=== PATIENT | male | born 1950 | race Caucasian/White ===

== ENCOUNTER 2016-12-27 13:39 | Emergency (ER) | payer MEDICARE, OTHER ==
[2016-12-27] MEDS ORDERED: LORazepam 2 MG/ML INJ ONE ×2 (13:53→14:42)
[2016-12-27 13:56] LABS: BASOPHIL# 0.1 X 10^3uL (0.0-0.1); BASOPHILS 0.6 % (0.0-2.0); EOSINOPHILS 7.5 % (0.0-6.0); EOSINOPHILS# 1.1 X 10^3uL (0.0-0.4); HEMOGLOBIN 17.8 g/dL (14.0-18.0); LYMPHOCYTES 20.4 % (20.0-40.0); LYMPHOCYTES# 2.9 X 10^3uL (0.8-3.8); MEAN CELL VOLUME 88.7 fL (84.0-102.0); MEAN CORPUS. HGB CONCENTRATION 34.2 g/dL (32.0-36.0); MEAN CORPUSCULAR HEMOGLOBIN 30.3 pg (29.0-35.0); MEAN PLATELET VOLUME 8.5 fL (7.4-10.4); MONOCYTES 14.5 % (2.0-10.0); MONOCYTES# 2.1 X 10^3uL (0.2-1.0); PLATELET COUNT 396 X 10^3uL (130-440); RED BLOOD COUNT 5.86 X 10^6uL (4.20-6.10); RED CELL DISTRIBUTION WIDTH 13.3 % (11.5-14.5); WHITE BLOOD COUNT 14.2 X 10^3uL (3.9-10.7)
[2016-12-27] MEDS ORDERED: FOSPHENYTOIN SODIUM 500 MG/10 ML VIAL ONE (14:02)
[2016-12-27] MEDS ORDERED: NORMAL SALINE 100 ML IV ONE (14:05)
[2016-12-27 14:07] LABS: BLOOD UREA NITROGEN 19 mg/dL (9-20); CALCIUM 10.7 mg/dL (8.4-10.2); CHLORIDE 106 mmol/L (98-107); CREATININE 1.7 mg/dL (0.7-1.3); EST GLOMERULAR FILTRATION RATE 43 mL/min; ETHYL ALCOHOL < 10 mg/dL (<10); GLUCOSE 133 mg/dL (70-100); MAGNESIUM 2.3 mg/dL (1.6-2.3); POTASSIUM 3.4 mmol/L (3.5-5.1)
[2016-12-27 14:08] LABS: SODIUM 151 mmol/L (137-145)
[2016-12-27] MEDS ORDERED: DEXAMETHASONE 10 MG/ML VIAL ONE (14:50)
[2016-12-27] MEDS ORDERED: ONDANSETRON HCL 4 MG/2 ML VIAL ONE (14:50)
[2016-12-27] MEDS ORDERED: LIDOCAINE HCL 2% URO-JET 5 ML JEL.PF.APP MUCOUS MEM ONE (15:01)
--- NOTE | 2016-12-27 15:34 | ER NURSING DOCUMENTATION ---
Nurse's Notes [facility] Name:Pepito Benitez Age:66 yrs Sex:Male :1950 Arrival Date:12/27/2016 Time:13:39 Bed4 Private MD:Ike Spivey Diagnosis:Generalized Seizure;New Onset Seizure Presentation: 12/27 13:48 Acuity: NEREYDA 1 st 13:49 Notified ED Physician of patient's arrival and CC Dr. Teran notified. nf 13:49 Presenting complaint: states: around 1320 patient noticed left had twitching which nf progressed to entire arm shaking with associated pain from left shoulder down; patient ambulatory to ER bed. 13:49 Transition of care: Home. An acute neurological deficit is present. The patient has nf been moved to a treatment area. Pre-hospital glucose is not applicable to this patient. 13:49 Method Of Arrival: Private Vehicle nf Triage Assessment: 13:50 The onset of the patients symptoms was less than three hours ago. General: Appears nf distressed, well nourished, well groomed, Behavior is agitated, anxious. Pain: Complains of pain in left arm, starts in shoulder and radiates to hand; started "when the twitching started". 13:50 Neuro: Reports. nf 13:50 EENT: No deficits noted. Neuro: Level of Consciousness is awake, alert, Oriented to nf person, place, time, event, Pie Icer Machine are weak on left Moves all extremities. Gait is unsteady, Speech is normal, Facial symmetry appears normal, Pupils are PERRLA, Reports weakness in left arm, reports he cannot tell if this is worse than his baseline left arm tremors which started as finger twitching and left arm pain with the tremulous movement. Denies blurred vision numbness headache. Cardiovascular: Capillary refill < 3 seconds Reports Diaphoresis Denies lightheadedness, palpitations, syncope, Rhythm is sinus tachycardia Chest pain is denied. Respiratory: Respiratory effort is even, unlabored, Respiratory pattern is hyperventilation Breath sounds are clear bilaterally. Denies shortness of breath labored breathing, air hunger. GI: No deficits noted. Denies nausea, vomiting. Historical: - Allergies: Sulfa (Sulfonamide Antibiotics); Codeine; - Home Meds: 1. chemotherapy 2. zofran with chemotherapy - PMHx: brain tumor March 2015; - PSHx: brain tumor; Cholecysectomy; Tonsillectomy; Appendectomy; - Tetanus: unknown. - Ebola Screening: : No symptoms or risks identified at this time. . - Immunization history: Pneumococcal vaccine is up to date, Flu Vaccine < 1 year. - Social history: Smoking status: unknown if patient ever smoked tobacco. Screenin:50 Infectious Disease Risk None. Abuse screen: Denies threats or abuse. Nutritional nf screening: No deficits noted. Assessment: 13:50 See Triage Assessment done by same RN. Pain: Complains of pain in isolated to left arm. nf 13:50 Neuro: see triage assessment. nf 13:51 Reassessment: generalized seizure witnessed by nursing staff, full body shaking, left nf face contorted, left azzueta gaze, lasted 20-30 seconds, not post ictal and patient states she did not loose consciousness during that time, left arm pain resolved after generalized seizure, not postictal and no incontinence, no airway compromise; left upper extremity tremors continue; Syd aware of seizure. 14:03 General: pt is full body seizure. . st 14:03 Reassessment: second generalized seizure lasting 20-30 seconds, not post ictal, no nf incontinence; minor oral trauma noted by a small amount of blood on lips - unidentifiable source of lips or tongue; no airway compromise; patient now unable to move left leg and physician aware. 14:10 General: Dr. Teran informed of sodium level of 151.. st 14:31 Reassessment: dfficulty getting adequate CT scan due to left arm and upper body nf tremors, Syd notified; patient to be left on scanning table and additional Ativan being brought by another nurse. Vital Signs: 13:50 BP 190 / 108; Pulse 157; Resp 32; Temp 96.5(O); Pulse Ox 92% on R/A; Weight 113.4 kg; nf Height 6 ft. 3 in. (190.50 cm); Pain 10/10; 14:10 BP 165 / 87; Pulse 126; Resp 20; Pulse Ox 94% 2 lpm ; Pain 0/10; nf 15:30 BP 162 / 78; Pulse 118; Resp 20; Pulse Ox 91% on 2 lpm NC; Pain 0/10; nf 13:50 Body Mass Index 31.25 (113.40 kg, 190.50 cm) nf Norma Coma Score: 13:50 Eye Response: spontaneous(4). Verbal Response: oriented(5). Motor Response: obeys nf commands(6). Total: 15. 15:30 Eye Response: spontaneous(4). Verbal Response: oriented(5). Motor Response: obeys nf commands(6). Total: 15. ED Course: 13:40 Patient arrived in ED. arc 13:41 Ike Spivey MD is Private Physician. arc 13:46 EKG done. (by ED staff). Reviewed by Ike Teran MD. nf 13:47 Ike Teran MD is Attending Physician. ny 13:[address] 13:49 Bushra Balderas, RN is Primary Nurse. nf 13:49 Inserted peripheral IV: 20 gauge in left antecubital area and blood collected. st 13:50 Oxygen Oxygen administration via nasal cannula @ 2L/min. nf 13:50 Arm band placed on Bed in low position Gowned HOB Elevated Side rails up x2. Family nf accompanied patient. 13:50 Cardiac Monitoring On for Nurse Monitoring only. Pulse Ox - RN Monitoring Only NIBP On nf - RN Monitoring Only. Door closed. Noise minimized. Lights dimmed. Moved to private room. Verbal reassurance given. Warm blanket given. Pillow given. Diet: Patient is NPO. 13:50 Valuables Remains with patient Seizure precautions initiated. Seizure pads on bed close nf monitoring by staff bedside monitoring initiated. 14:03 Oxygen Oxygen administration via non-rebreather mask oxygen increased during seizure nf activity, blow by via NRB. 14:05 Oral care given. nf 14:06 EKG attached nf 14:20 RN escorted patient out of department to CT scan with oxygen. nf 15:05 Urine collected. Specimen obtained from Mehta. nf 15:05 Mehta cath inserted 16 Fr. Balloon inflated. To gravity drainage. Urine specimen nf collected. other urometer bag attached returned clear yellow urine. Patient tolerated well. 15:25 Report given to Paramarabella Pleitez at bedside. nf 15:25 Valuables Given to family. phone, wallet, eyeglasses, pants, socks, shoes, belt, nf underwear, and sweatshirt; t shirt was cut off and discarded by . 15:43 Other attached nf Administered Medications: 13:46 Drug: EKG 1 ea; Route: Topical; Site: affected area; nf 16:50 Follow up: Response: No adverse reaction nf 13:50 Drug: oxygen 1 ea; {Note: 2L/min nasal canula .} Route: Inhalation; nf 15:10 Follow up: Response: No adverse reaction nf 14:02 Drug: Cerebyx 1 grams; Route: IVPB; Site: left antecubital; nf 14:20 Follow up: IV Status: Completed infusion; IV Intake: 120ml nf 14:38 Follow up: Response: Marked relief of symptoms nf 14:03 Drug: Ativan 1 mg; Route: IVP; Site: left antecubital; st 14:36 Follow up: Response: No change in condition nf 14:05 Drug: NS 0.9% 1000 ml; Route: IV; Rate: 150 ml/hr; Site: left antecubital; nf 15:18 Follow up: IV Status: Infusing continued upon transfer; IV Intake: 250ml nf 14:31 Drug: Ativan 1 mg; Route: IVP; Site: left antecubital; nf 14:35 Follow up: Response: No change in condition nf 14:35 Drug: Ativan 1 mg; Route: IVP; Site: left antecubital; nf 15:33 Follow up: Response: Marked relief of symptoms nf 14:47 Drug: Zofran 4 mg; Route: IVP; Infused Over: 2 mins; Site: left antecubital; st 15:20 Follow up: Response: No adverse reaction nf 14:47 Drug: Decadron 10 mg IVP - Dexamethasone 10 mg; Route: IVP; Site: left antecubital; st 15:20 Follow up: Response: No adverse reaction nf 15:05 Drug: Urojet - Lidocaine Viscous Gel 2 % 1 application; Route: Mucous Membrane; nf 15:24 Follow up: Response: No adverse reaction nf Point of Care Testing: Blood Glucose: 13:55 Blood Glucose: 129 mg/dL; nf Urine Dip: 15:05 pH: 5.5; ; Specific [place]: 1.025; Ketones: Trace; Glucose: Negative; Protein: nf Positive (++); Leukocytes: Negative; Nitrite: Negative ; Blood: Negative; Bilirubin: Negative ; Urobilinogen: Normal Ranges: Intake: 14:20 IV: 120ml; Total: 120ml. nf 15:18 IV: 250ml; Total: 370ml. nf 15:32 PO: 0ml; Total: 370ml. nf Output: 15:32 Urine: 300ml (Mehta); Total: 300ml. nf Outcome: 14:45 ER care complete, transfer ordered by . sc 15:27 Transferred: Patient will be transferred to: [facility]. Facility nf Acceptance Time: December 27, 2016 at 14:30 Patient's face sheet was faxed to accepting facility. Face Sheet included patient's name, address, age, gender, contact information and insurance information. Patient will be transported by: [facility] ground. Nurse and Physician Charting and Notes were sent to Accepting Facility. All tests and/or procedures with results, if applicable, were sent to accepting facility. 15:27 Condition: improved 15:27 Discharge Assessment: Patient awake, alert and oriented x 3. No cognitive and/or functional deficits noted. Patient verbalized understanding of disposition instructions. 15:27 Discharge instructions given to patient, family, Instructed on need for transfer Demonstrated understanding of instructions. 15:33 Patient left the ED. nf 15:40 Transferred: Report called to: Ike Cabrera RN at [facility] ER nf 17:53 Report given to updates nurses notes faxed to [facility] ER attention Angeline saundra Signatures: Olga Plaza, RN Bushra Wilder RN RN nf Chew, Scott, MD MD sc Norman, David dnn Chew, Amelia, Reg Reg arc
--- NOTE | 2016-12-27 15:35 | ER PHYSICIAN DOCUMENTATION ---
Physician Documentation [facility] Name:Pepito Benitez Age:66 yrs Sex:Male :1950 Arrival Date:12/27/2016 Time:13:39 Bed4 Private MD:Ike Spivey ED, Scott Disposition: 12/27/16 14:45 Transfer ordered to [facility]. Diagnosis are Generalized Seizure, New Onset Seizure. - Reason for transfer: Specialty. - Accepting physician is Dr. Lata Workman. - Condition is Serious. - Problem is new. - Symptoms are unchanged. COBRA Form completed? Yes Transfer - Mode of Transportation Ambulance HPI: 12/27 14:35 This 66 yrs old Male presents to ER with complaints of S/S of Possible St. sc 14:35 The patient presents after having a single isolated seizure. Character of seizure(s): sc Loss of consciousness: the patient did not lose consciousness, focal shaking of left hand, became generalized on arrival to ED, immediately aware after 30 sec seizure. Seizure onset: just prior to arrival. Context: the seizure(s) was witnessed, by a significant other, . Seizure Hx: the patient has no previous seizure history. surgery for glioblastoma March 2015, MRI last week, waiting for results. Historical: - Allergies: Sulfa (Sulfonamide Antibiotics); Codeine; - Home Meds: 1. chemotherapy 2. zofran with chemotherapy - PMHx: brain tumor March 2015; - PSHx: brain tumor; Cholecysectomy; Tonsillectomy; Appendectomy; - Tetanus: unknown. - Ebola Screening: : No symptoms or risks identified at this time. . - Immunization history: Pneumococcal vaccine is up to date, Flu Vaccine < 1 year. - Social history: Smoking status: unknown if patient ever smoked tobacco. ROS: 14:37 Constitutional: Negative for fever, chills, and weight loss. sc Eyes: Negative for injury, pain, redness, and discharge. ENT: Negative for injury, pain, and discharge. Neck: Negative for injury, pain, and swelling. Cardiovascular: Negative for chest pain, palpitations, and edema. Respiratory: Negative for shortness of breath, cough, wheezing, and pleuritic chest pain. Abdomen/GI: Negative for abdominal pain, nausea, vomiting, diarrhea, and constipation. Back: Negative for injury and pain. MS/Extremity: Negative for injury and deformity. 14:37 Skin: Negative for injury, rash, and discoloration. sc 14:37 Neuro: Positive for seizure activity. Exam: Constitutional: This is a well developed, well nourished patient who is awake, alert, and in no acute distress. Head/Face: Normocephalic, atraumatic. Eyes: Pupils equal round and reactive to light, extra-ocular motions intact. Lids and lashes normal. Conjunctiva and sclera are non-icteric and not injected. Cornea within normal limits. Periorbital areas with no swelling, redness, or edema. ENT: Nares patent. No nasal discharge, no septal abnormalities noted. Tympanic membranes are normal and external auditory canals are clear. Oropharynx with no redness, swelling, or masses, exudates, or evidence of obstruction, uvula midline. Mucous membranes moist. Neck: Trachea midline, no thyromegaly or masses palpated, and no cervical lymphadenopathy. Supple, full range of motion without nuchal rigidity, or vertebral point tenderness. No meningismus. Chest/axilla: Normal chest wall appearance and motion. Nontender with no deformity. No lesions are appreciated. Cardiovascular: Regular rate and rhythm with a normal S1 and S2. No gallops, murmurs, or rubs. Normal PMI, no JVD. No pulse deficits. Respiratory: Lungs have equal breath sounds bilaterally, clear to auscultation and percussion. No rales, rhonchi or wheezes noted. No increased work of breathing, no retractions or nasal flaring. Abdomen/GI: Soft, non-tender, with normal bowel sounds. No distension or tympany. No guarding or rebound. No evidence of tenderness throughout. Back: No spinal tenderness. No costovertebral tenderness. Full range of motion. 14:37 Skin: Warm, dry with normal turgor. Normal color with no rashes, no lesions, and no sc evidence of cellulitis. 14:37 Neuro: Motor: tonic clonic focal left arm. Vital Signs: 13:50 BP 190 / 108; Pulse 157; Resp 32; Temp 96.5(O); Pulse Ox 92% on R/A; Weight 113.4 kg; nf Height 6 ft. 3 in. (190.50 cm); Pain 10/10; 14:10 BP 165 / 87; Pulse 126; Resp 20; Pulse Ox 94% 2 lpm ; Pain 0/10; nf 15:30 BP 162 / 78; Pulse 118; Resp 20; Pulse Ox 91% on 2 lpm NC; Pain 0/10; nf 13:50 Body Mass Index 31.25 (113.40 kg, 190.50 cm) nf Norma Coma Score: 13:50 Eye Response: spontaneous(4). Verbal Response: oriented(5). Motor Response: obeys nf commands(6). Total: 15. 15:30 Eye Response: spontaneous(4). Verbal Response: oriented(5). Motor Response: obeys nf commands(6). Total: 15. MDM: 13:47 Patient medically screened. ri 14:06 EKG attached nf 14:38 Differential diagnosis: seizure. Neurological re-evaluation: all normal except: focal sc and generalized seizure. Data reviewed: vital signs, nurses notes, lab test result(s), EKG, radiologic studies, CT scan, and as a result, I will *Transfer Patient. Counseling: I had a detailed discussion with the patient and/or guardian regarding: the historical points, exam findings, and any diagnostic results supporting the discharge/admit diagnosis, lab results, radiology results, the need to transfer to another facility. ECG:. 14:48 Physician consultation: Lata Workman was called at 14:49, was contacted at 14:49, ri regarding patient's condition. 15:43 Other attached 12/27 13:59 Order name: CBC AUTO DIF, MDIF/RMOR IF IND; Complete Time: 15:01 EDHI 12/27 15:01 Interpretation: Abnormal: WHITE BLOOD COUNT 14.2. ri 12/27 14:09 Order name: BASIC METABOLIC PANEL; Complete Time: 15:01 EDMS 12/27 15:01 Interpretation: Abnormal: SODIUM 151; POTASSIUM 3.4; CREATININE 1.7. ri 12/27 14:09 Order name: MAGNESIUM; Complete Time: 15:01 EDHI 12/27 15:01 Interpretation: Normal. ri 12/27 14:09 Order name: ETHYL ALCOHOL; Complete Time: 15:01 EDHI 12/27 15:01 Interpretation: Normal. ri 12/27 13:48 Order name: Iv Saline Lock; Complete Time: 13:53 ri 12/27 13:48 Order name: Pulse Ox Continuous; Complete Time: 13:53 ri 12/27 13:48 Order name: Seizure Precautions; Complete Time: 13:53 ri 12/27 14:38 Order name: Mehta; Complete Time: 15:01 12/27 15:01 Interpretation: Normal. sc EC:38 Rate is 120 beats/min. Rhythm is regular. QRS [place] is Normal. WA interval is normal. sc QRS interval is normal. T waves are Normal. No ST changes noted. Clinical impression: Normal ECG, Atrial Flutter, and Sinus tachycardia. Interpreted by me. Reviewed by me. Dispensed Medications: 13:46 Drug: EKG 1 ea; Route: Topical; Site: affected area; nf 16:50 Follow up: Response: No adverse reaction nf 13:50 Drug: oxygen 1 ea; {Note: 2L/min nasal canula .} Route: Inhalation; nf 15:10 Follow up: Response: No adverse reaction nf 14:02 Drug: Cerebyx 1 grams; Route: IVPB; Site: left antecubital; nf 14:20 Follow up: IV Status: Completed infusion; IV Intake: 120ml nf 14:38 Follow up: Response: Marked relief of symptoms nf 14:03 Drug: Ativan 1 mg; Route: IVP; Site: left antecubital; st 14:36 Follow up: Response: No change in condition nf 14:05 Drug: NS 0.9% 1000 ml; Route: IV; Rate: 150 ml/hr; Site: left antecubital; nf 15:18 Follow up: IV Status: Infusing continued upon transfer; IV Intake: 250ml nf 14:31 Drug: Ativan 1 mg; Route: IVP; Site: left antecubital; nf 14:35 Follow up: Response: No change in condition nf 14:35 Drug: Ativan 1 mg; Route: IVP; Site: left antecubital; nf 15:33 Follow up: Response: Marked relief of symptoms nf 14:47 Drug: Zofran 4 mg; Route: IVP; Infused Over: 2 mins; Site: left antecubital; st 15:20 Follow up: Response: No adverse reaction nf 14:47 Drug: Decadron 10 mg IVP - Dexamethasone 10 mg; Route: IVP; Site: left antecubital; st 15:20 Follow up: Response: No adverse reaction nf 15:05 Drug: Urojet - Lidocaine Viscous Gel 2 % 1 application; Route: Mucous Membrane; nf 15:24 Follow up: Response: No adverse reaction nf Point of Care Testing: Blood Glucose: 13:55 Blood Glucose: 129 mg/dL; nf Urine Dip: 15:05 pH: 5.5; ; Specific [place]: 1.025; Ketones: Trace; Glucose: Negative; Protein: nf Positive (++); Leukocytes: Negative; Nitrite: Negative ; Blood: Negative; Bilirubin: Negative ; Urobilinogen: Normal Ranges: Critical Glucose Levels:Adult <50 mg/dl or >400 mg/dl <40 mg/dl or >180 mg/dl Signatures: Olga Plaza RN RN st Friel, Nicole, RN RN nf Chew, Scott, MD MD ri
--- NOTE | 2016-12-28 09:50 | CT REPORT ---
HISTORY: Seizure, history of prior tumor removal in right COMPARISON: None. TECHNIQUE: Axial non-contrast images obtained from skull vertex through foramen magnum. Dose reduction technique was utilized. The patient was sedated, and multiple scans were obtained. There is still mild motion artifact. FINDINGS: Brain volume is normal. Ventricular size is normal. In the right frontal parietal region, deep to the craniotomy, there is a small area of hypodensity likely related to prior surgery. Old infarct cannot entirely be excluded. No other focal parenchymal abnormalities. No evidence of hemorrhage, midline shift or mass effect. No large subdural or epidural collection, but given the motion small subdural collections could be missed. The skull is unremarkable other than the right frontal parietal craniotomy. The sinuses are clear. IMPRESSION: Prior surgical change in the right frontoparietal region with small to moderate- sized area of old infarction or encephalomalacia. No definite acute infarction or hemorrhage. Mild motion artifact slightly decreases the sensitivity. Report called to Dr. elliott. Final Electronic Signature: This report was electronically signed by Jake Segura MD on 12/27/2016 3:04 PM. dayan / NENA
== END 2016-12-27 15:33 | disposition short-term general hospital (02) ==
LOC: ER 13:39
DX: R56.9 Unspecified convulsions (principal); E87.0 Hyperosmolality and hypernatremia; I48.92 Unspecified atrial flutter; R00.0 Tachycardia, unspecified; R82.99 Other abnormal findings in urine; Z85.841 Personal history of malignant neoplasm of brain; Z98.890 Other specified postprocedural states; Z92.21 Personal history of antineoplastic chemotherapy; Z46.6 Encounter for fitting and adjustment of urinary device; Z99.89 Dependence on other enabling machines and devices; Z99.81 Dependence on supplemental oxygen; Z74.3 Need for continuous supervision
CPT/HCPCS: 51702; 70450; 80048; 80320; 83735; 85025; 93005; 93010; 94640; 96361; 96365; 96375; 99285; A0425; A0427; J1100; J2060; J2405